=== PATIENT | male | born 1990 | race Hispanic/Latino ===

== ENCOUNTER 2023-04-17 05:55 | Emergency (ER) | payer OTHER ==
[~2023-04-17] VITALS: Ht 185.4 cm; Wt 94.3 kg
[2023-04-17 06:30] LABS: APPEARANCE,URINE CLEAR (CLEAR); BILIRUBIN,URINE NEGATIVE (NEGATIVE); COLOR,URINE LIGHT-YELLOW (YELLOW); GLUCOSE, URINE (UA) NEGATIVE (NEGATIVE); KETONES,URINE NEGATIVE (NEGATIVE); LEUKOCYTE ESTERASE ,URINE NEGATIVE Leu/uL (NEGATIVE); NITRATE,URINE NEGATIVE (NEGATIVE); PH,URINE 5.5 (5.0-8.0); PROTEIN,URINE 10 mg/dL (NEGATIVE); UROBILINOGEN,URINE 0.2 mg/dL (0.2-1.0)
[2023-04-17 06:58] LABS: BACTERIA,URINE RARE /HPF (None Seen); CALCIUM OXALATE CRYSTALS,UR RARE /LPF (None Seen); MUCUS,URINE RARE LPF (None Seen); WBC,URINE 0-1 /HPF (0-1)
[2023-04-17] MEDS ORDERED: KETOROLAC 30MG VIAL (30MG/ML) IVP ONE (08:00)
[2023-04-17] MEDS ORDERED: METOCLOPRAMIDE 10 MG/2 ML VIAL IVP ONE (08:00)
[2023-04-17] MEDS ORDERED: FAMOTIDINE 20MG VIAL IV ONE (08:00)
[2023-04-17] MEDS ORDERED: DIAZEPAM 5 MG/ML 2 ML SYG IVP ONE (08:00)
[2023-04-17] MEDS ORDERED: NAPR-1192 PO (11:54)
[2023-04-17] MEDS ORDERED: CYCL10TA16 PO (11:54)
[2023-04-17 12:07] VITALS: BP 131/70
== END 2023-04-17 12:09 | disposition home or self-care (01) ==
LOC: EDH 05:55
DX: S39.012A Strain of muscle, fascia and tendon of lower back, initial encounter (principal); M54.41 Lumbago with sciatica, right side; X58.XXXA Exposure to other specified factors, initial encounter; Y93.89 Activity, other specified; Y92.89 Other specified places as the place of occurrence of the external cause; Y99.8 Other external cause status
CPT/HCPCS: 99284; 96374; 96375; 81001; J3490; J3360; J1885; J2765